=== PATIENT | male | born 2000 | race Caucasian/White ===

== ENCOUNTER 2024-01-17 00:55 | Emergency (ER) | payer MEDICAID ==
[2024-01-17 01:16] VITALS: RESP 22
--- NOTE | 2024-01-17 01:20 | ERPHSYRPT ---
- History of Present Illness Time Seen by Provider: 01/17/24 01:15 Source: patient Exam Limitations: no limitations Patient Subjective Stated Complaint: pt states that he was bit by his cousins dog Triage Nursing Assessment: pt came into the er via wheelchair; pt transfer self to cot; pt is axo x4; c/o dog bite; pt states 8/10 pain to left foot; medial laceration measures 2 cm x 1 cm to left foot; lateral laceration measure 3 cm x 0.5 cm to left foot; minimal bleeding present to left foot; puncture wound present to rt upper arm; no respiratory distress present; vitals wnl Physician History: 23yo m presents to ED by private vehicle following dog bite of the left foot that occurred 30min prior to arrival. Pt states he was bitten by his cousin's pitbull, unknown if it is up to date on vaccinations. Pt has 2 lacerations roughly 1inch in length on the proximal dorsal aspect of the foot. Pt reports limited range of motion in all toes, reports numbness in dorsal aspect of all toes, minimal ROM at the ankle is reported as well. Pt is unsure of date of his last tetanus shot. Method of Injury: other (dog bite) Occurred: just prior to arrival Severity of Pain-Max: moderate Severity of Pain-Current: moderate Lower Extremities Pain: foot: left Modifying Factors: Improves With: nothing Allergies/Adverse Reactions: No Known Drug Allergies Allergy (Unverified 01/17/24 01:02) Hx Tetanus, Diphtheria Vaccination/Date Given: Yes Hx Influenza Vaccination/Date Given: No Hx Pneumococcal Vaccination/Date Given: No Immunizations Up to Date: No Travel Risk - International Travel Have you traveled outside of the country in past 3 weeks: No - Emerging Infectious Disease Are you exhibiting symptoms associated with any current EIDs: No - Review of Systems Constitutional: No Symptoms Respiratory: No Symptoms Cardiac: No Symptoms Musculoskeletal: Injury (dog bite left foot) - Past Medical History Pertinent Past Medical History: No - Past Surgical History Past Surgical History: No - Social History Smoking Status: Current every day smoker Exposure to second hand smoke: Yes Drug Use: none - Nursing Vital Signs Nursing Vital Signs: Initial Vital Signs Temperature 99.2 F 01/17/24 01:03 Pulse Rate 103 H 01/17/24 01:03 Respiratory Rate 22 01/17/24 01:03 Blood Pressure 126/91 01/17/24 01:03 O2 Sat by Pulse Oximetry 99 01/17/24 01:03 Pain Scale Pain Intensity 6 - Physical Exam General Appearance: no apparent distress, alert Cardiovascular/Respiratory Exam: chest non-tender, normal breath sounds Foot Exam: left foot: abrasions/lacerations (1 inch laceration medial proximal dorsum of foot; 1 inch lac lateral proximal dorsum of foot), bone tenderness (dorsum of dye tub tender diffusely), limited range of motion (at ankle, reportedly unable to move any toes), pain, soft tissue tenderness, swelling (swelling over proximal dorsum of foot) Neuro/Tendon Exam: motor deficit, sensory deficit (reports numbness of all toes on plantar and dorsal aspects ), withdraws to pain, tendon function deficit (concern for nerve visible in laceration) Mental Status Exam: alert, oriented x 3 SpO2 Interpretation: normal O2 Delivery: Room Air Procedures - Laceration/Wound Repair Left Medial Foot Time of Procedure: 03:30 Wound Location: Left, foot Wound Length (cm): 1.5 Wound's Depth, Shape: superficial, linear Wound Explored: no foreign body noted Irrigated: Yes Hibiclens Prep: Yes Anesthesia: local, 1% Lidocaine Volume Anesthetic (ccs): 5 Wound Debrided: minimal Wound Repaired With: sutures Suture Size/Type: 3-0, ethilon Number of Sutures: 4 Layer Closure?: No Sterile Dressing Applied?: No Splint Applied?: No Sling Applied?: No Progress: 01/17/24 04:10 wounds clean w/ sterile saline, minimal bleeding observed 01/17/24 03:49 6 stitches (1 vertical mattress, 5 simple interrupted) placed in lateral laceration, distal portion of wound left patent and packed w/ iodiform gauze per podiatry instruction 4 stitiches (1 vertical mattress, 3 simple interrupted) placed in medial laceration, distal portion of wound left patent and packed w/ iodiform gauze per podiatry instruction gauze and aj wrap applied to foot for mild compression per podiatry instruction Left Lateral Proximal Dorsal Foot Time of Procedure: 03:30 Wound Location: Left, foot Wound Length (cm): 3 Wound's Depth, Shape: superficial, linear Wound Explored: no foreign body noted Irrigated: Yes Hibiclens Prep: Yes Anesthesia: local, 1% Lidocaine Volume Anesthetic (ccs): 5 Wound Debrided: minimal Wound Repaired With: sutures Suture Size/Type: 3-0, ethilon Number of Sutures: 4 Layer Closure?: No Sterile Dressing Applied?: No Splint Applied?: No Sling Applied?: No Progress: 01/17/24 04:11 wounds clean w/ sterile saline, minimal bleeding observed 01/17/24 03:49 6 stitches (1 vertical mattress, 5 simple interrupted) placed in lateral laceration, distal portion of wound left patent and packed w/ iodiform gauze per podiatry instruction 4 stitiches (1 vertical mattress, 3 simple interrupted) placed in medial laceration, distal portion of wound left patent and packed w/ iodiform gauze per podiatry instruction gauze and aj wrap applied to foot for mild compression per podiatry instruction Ordered Tests: Active Orders 24 hr Category Date Time Status ANKLE (3 VIEWS) Stat Exams 01/17/24 01:18 Completed FOOT (MINIMUM 3 VIEWS) Stat Exams 01/17/24 01:18 Completed Medication Summary Discontinued Medications Generic Name Dose Route Start Last Admin Trade Name Freq PRN Reason Stop Dose Admin Hydrocodone Bitart/Acetaminophen 1 tab 01/17/24 01:54 01/17/24 02:03 Hydrocodone/Apap 5/325 1 Tab Tablet PO 01/17/24 01:55 1 tab STAT ONE Administration Hydrocodone Bitart/Acetaminophen Confirm 01/17/24 02:02 Hydrocodone/Apap 5/325 1 Tab Tablet Administered 01/17/24 02:03 Dose 1 tab .ROUTE .STK-MED ONE Amoxicillin/Clavulanate Potassium 875 mg 01/17/24 02:11 01/17/24 02:16 Amox Tr/Potassium Clavulanate 875 Mg Tablet PO 01/17/24 02:12 875 mg STAT ONE Administration Amoxicillin/Clavulanate Potassium Confirm 01/17/24 02:14 Amox Tr/Potassium Clavulanate 875 Mg Tablet Administered 01/17/24 02:15 Dose 875 mg .ROUTE .STK-MED ONE Diphtheria/Tetanus/Acell Pertussis 0.5 ml 01/17/24 02:10 01/17/24 02:16 Tdap --Diph,Pertuss(Acell),Tet Vac/Pf 0.5 Ml Vial IM 01/17/24 02:11 0.5 ml .ONCE ONE Administration Diphtheria/Tetanus/Acell Pertussis Confirm 01/17/24 02:14 Tdap --Diph,Pertuss(Acell),Tet Vac/Pf 0.5 Ml Vial Administered 01/17/24 02:15 Dose 0.5 ml IM .STK-MED ONE Lidocaine HCl 10 ml 01/17/24 03:40 01/17/24 03:44 Lidocaine Hcl 1% 20 Ml Mdv 20 Ml Ml IJ 01/17/24 03:41 10 ml STAT ONE Administration Lidocaine HCl Confirm 01/17/24 03:45 Lidocaine Hcl 1% 20 Ml Mdv 20 Ml Ml Administered 01/17/24 03:46 Dose 10 ml .ROUTE .STK-MED ONE - Progress Progress: improved Progress Note: 01/17/24 02:00 foot and ankle xray sent for trauma read by radiology ordered tetanus vaccination, norco 5mg PO wounds clean w/ sterile saline, minimal bleeding observed 01/17/24 03:49 6 stitches (1 vertical mattress, 5 simple interrupted) placed in lateral laceration, distal portion of wound left patent and packed w/ iodiform gauze per podiatry instruction 4 stitiches (1 vertical mattress, 3 simple interrupted) placed in medial laceration, distal portion of wound left patent and packed w/ iodiform gauze per podiatry instruction gauze and aj wrap applied to foot for mild compression per podiatry instruction I spoke w/ back gray cloth washer Dr Chauhan at 03:15 regarding imaging and pt case - he recommended irrigating the wounds, placing possible nerve/tendon tissue back into wounds and suturing them w/ partial opening, pack w/ iodiform gauze, start augmentin, apply aj wrap for compression and have pt follow up in office for evaluation of possible nerve/tendon injury per CDC recommendation: if dog is Healthy and available for 10 day observation - Persons should not begin vaccination unless animal develops clinical signs of rabies; pt states that the dog belongs to his cousin and that the dog can be closely observed for new onset behavior changes for 10 days plan for dc home w/ close follow up on 01/19/[address] Chauhan - Podiatry walk in clinic for evaluation of possible nerve/tendon injury, evaluation of wounds ibuprofen/tylenol for pain control keep wounds clean and dry until seen by podiatry given gauze and AJ wrap to use at home until seen by podiatry provided w/ crutches for ambulation very important to follow up with podiatry on Friday01/19/24 at the walk-in clinic at [facility] with Dr Chauhan return to ED if: fever develops, pain becomes unbearable, bleeding from wounds occurs, if dog starts behaving abnormally during 10 day observation window - may need rabies vaccine 01/17/24 04:00 Counseled pt/family regarding: diagnosis, need for follow-up, rad results Medical Desision Making - Discussion of managment Care discussed with:: specialist (podiatry - Dr Chauhan) Reviewed:: Test results Agreed on:: Treatment plan, need for follow-up Will see patient: In office - Diagnostic Testing Diagnostic test were ordered, analyzed, and reviewed by me: Yes Radiological Interpretation: Reviewed by me, Teleradiologist Report - Risk of complications The pt has a mod risk of morbidity or mortality based on: Need for prescription drug management - Departure Departure Disposition: Home Clinical Impression: Sutured skin wound Dog bite of left foot Qualifiers: Encounter type: initial encounter Qualified Code(s): S91.352A - Open bite, left foot, initial encounter; W54.0XXA - Bitten by dog, initial encounter Laceration of foot Qualifiers: Encounter type: initial encounter Laterality: left Qualified Code(s): S91.312A - Laceration without foreign body, left foot, initial encounter Condition: Stable Critical Care Time: No Referrals: DOCTOR,NO FAMILY [Primary Care Provider] - Follow up/PCP as directed Additional Instructions: plan for dc home w/ close follow up on 01/19/[address] Chauhan - Podiatry walk in clinic for evaluation of possible nerve/tendon injury, evaluation of wounds ibuprofen/tylenol for pain control keep wounds clean and dry until seen by podiatry given gauze and AJ wrap to use at home until seen by podiatry provided w/ crutches for ambulation very important to follow up with podiatry on Friday01/19/24 at the walk-in clinic at [facility] with Dr Chauhan return to ED if: fever develops, pain becomes unbearable, bleeding from wounds occurs, if dog starts behaving abnormally during 10 day observation window - may need rabies vaccine augmentin 10 day course sent to pharmacy Prescriptions: Amox Tr/Potass Clav. 875 mg [Augmentin 875-125 Tablet] 875 mg PO BID 10 Days #20 tablet
[2024-01-17 01:58] VITALS: TEMP 99.2
[2024-01-17] MEDS ORDERED: NORCO 5/325 MG ONE (02:02)
[2024-01-17] MEDS: NORCO 5/325 MG PO ONE (02:03)
[2024-01-17] MEDS ORDERED: Augmentin 875-125 Tablet ONE (02:14)
[2024-01-17] MEDS ORDERED: Adacel Vial IM ONE (02:14)
[2024-01-17] MEDS: Augmentin 875-125 Tablet PO ONE (02:16)
[2024-01-17] MEDS: Adacel Vial IM ONE (02:16)
--- NOTE | 2024-01-17 02:30 | XRAY ---
CLINICAL HISTORY: dog bite COMPARISON: None. TECHNIQUE: X-ray examination of the left ankle joint is performed in AP, Oblique, and lateral 3 views. FINDINGS: Normal left ankle joint alignment. No acute/obvious bony abnormality. Bone density is normal. Soft tissue swelling and emphysematic lucent foci noted at the dorsal and medial aspects of the mid/hind foot . IMPRESSION: 1. Soft tissue swelling and emphysematic lucent foci noted at the dorsal and medial aspects of the mid/hind foot suggestive of soft tissue infection/ulcer. advise clinical correlation. 2. No obvious/definite acute bony abnormality. DISCLAIMER:A subtle bone abnormality or fracture may not be readily apparent on x-rays, thus clinical correlation and further imaging including follow up CT, MRI, or follow up x-rays are advised as needed. Electronically Signed by: Belkis Gupta MD. (01/17/2024 02:26:45 EDT)
--- NOTE | 2024-01-17 02:30 | XRAY ---
CLINICAL HISTORY: dog bite COMPARISON: None. TECHNIQUE: X-ray examination of the left foot is performed in AP, lateral, and oblique 3 views. FINDINGS: Soft tissue swelling and emphysematic lucent foci were noted at the dorsal and medial aspects of the mid/hind foot. No obvious/definite acute bony abnormality. Bone density is normal. Visualized joints appear normal. IMPRESSION: 1. Soft tissue swelling and emphysematic lucent foci noted at the dorsal and medial aspects of the mid/hind foot suggestive of soft tissue infection/ulcer. advise clinical correlation. 2. No obvious/definite acute bony abnormality. DISCLAIMER:A subtle bone abnormality or fracture may not be readily apparent on x-rays, thus clinical correlation and further imaging including follow up CT, MRI, or follow up x-rays are advised as needed. Electronically Signed by: Belkis Gupta MD. (01/17/2024 02:25:41 EDT)
[2024-01-17] MEDS: XYLOCAINE 1% HCL 20 ML MDV IJ ONE (03:44)
[2024-01-17] MEDS ORDERED: XYLOCAINE 1% HCL 20 ML MDV ONE (03:45)
[2024-01-17 03:49] VITALS: BP 124/87; PULSE 86; O2SAT 97
== END 2024-01-17 04:07 | disposition home or self-care (01) ==
LOC: ED 00:55
DX: S91.352A Open bite, left foot, initial encounter (principal); W54.0XXA Bitten by dog, initial encounter; Z72.0 Tobacco use; Z79.899 Other long term (current) drug therapy; Z23 Encounter for immunization
CPT/HCPCS: 12002; 73610; 73630; 90471; 90715; 96372; 99284; A9270-GY